=== PATIENT | female | born 1960 | race Caucasian/White ===

== ENCOUNTER → 2018-10-28 10:32 | Outpatient (CLI) | payer MEDICAID, SELFPAY ==
--- NOTE | 2018-10-28 10:50 | XR_ITS ---
XR foot RT min 3V HISTORY: ITS.REASON: RT FOOT PAIN ORDERING PHYSICIAN: Becka Crawford APRN PATIENT AGE: 58 years COMPARISON: 08/31/2015 FINDINGS: There is cortical irregularity with flattening of the distal aspect of the second and third metatarsals consistent with avascular necrosis which is shown some progression compared to the previous exam with mild osteoarthritic change noted at the second MTP joint. Osteoarthritic changes are also present at the first metatarsal tarsal joint. A bone spur present at the plantar surface of the calcaneus at 9 mm. No fracture or dislocation. IMPRESSION: 1. 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 Osteoarthritic change of the verst tarsal metatarsal joint
== END ==
PROVIDERS: PCP Family Medicine; Visit Provider Nurse Practitioner Family
DX: M79.671 Pain in right foot (principal)
CPT/HCPCS: 73630

== ENCOUNTER 2018-12-22 15:30 | Outpatient (RCR) | payer MEDICAID, SELFPAY ==
--- NOTE | 2018-11-28 09:16 | HMH.PTOPEV ---
PT Outpatient Evaluation Rehab PT Outpatient Evaluation Start: 11/28/18 09:08 Freq: Status: Active Protocol: Document 11/28/18 09:08 CAROLYN (Rec: 11/28/18 09:16 CAROLYN [id number]) Electronically Signed By Abram Lopez, PT 11/28/18 09:08 Outpatient Therapy Subjective History Subjective History Pt reports insidious onset R ankle/foot pain beginning ~1 month ago. Pt reports mostly lateral aspect R ankle/foot pain, however, reports ' struggles with diabetic neuropathy in both my feet every now and then'. Chief Complaint Pain,Stiff,Swelling Symptom Type Ache,Dull Symptoms Relieved By Rest/Positioning,Prescription Meds Symptoms Aggravated By Physical Activity,Walking Prior Functional Limitations Housework,Standing,Walking Current Functional Limitations Housework,Standing,Walking Symptom Description Constant but Variable Level of pain today (0-10) 5 Pain scale - at its best (0-10) 4 Pain scale - at its worst (0-10) 10 Ankle/Foot Eval Gait Observation General Gait Pattern Observation Antalgic Gait,Wide Based Gait Palpation Tenderness right Ankle/Foot Palpation Findings Tenderness Ankle/Foot Palpation Overall Comment 3/4 peroneal insertion ROM left Ankle/Foot Dorsiflexion w/Knee Extended 0-10 Active Range Motion (degrees) Ankle/Foot Plantar Flexion Active Range 0-50 of Motion (degrees) Ankle/Foot Eversion Active Range of 0-10 Motion (degrees) Ankle/Foot Inversion Active Range of 0-30 Motion (degrees) right Ankle/Foot Dorsiflexion w/Knee Extended 0-10 Active Range Motion (degrees) Ankle/Foot Plantar Flexion Active Range 0-40 of Motion (degrees) Ankle/Foot Eversion Active Range of 0-10 Motion (degrees) Ankle/Foot Inversion Active Range of 0-30 Motion (degrees) MMT left Ankle Dorsiflexion Strength Grade 5 Normal Ankle Plantarflexion Strength Grade 5 Normal Foot Eversion Strength Grade 4- Good- Foot Inversion Strength Grade 4 Good right Ankle Dorsiflexion Strength Grade 4 Good Ankle Plantarflexion Strength Grade 4 Good Foot Eversion Strength Grade 4- Good- Foot Inversion Strength Grade 4 Good Special Tests Ankle Anterior Drawer Test Negative Left,Negative Right Ankle Eversion Test Negative Left,Negative Right Talar Tilt Test Negative Left,Negative Right Ankle Inversion (supination) Test Negative Left,Negative Right Ankle Posterior Drawer Test Negative Left,Negative Right Outpatient Therapy Assessment Impairments Pr
== END 2018-12-22 15:45 | disposition home or self-care (01) ==
LOC: PT 15:30
PROVIDERS: Visit Provider Podiatrist
DX: M76.71 Peroneal tendinitis, right leg (principal)
CPT/HCPCS: 97010; 97014; 97033; 97035; 97110; 97163; G0283

== ENCOUNTER → 2019-09-18 09:08 | Outpatient (CLI) | payer OTHER, SELFPAY ==
--- NOTE | 2019-09-18 09:13 | US_ITS ---
PROCEDURE: US LIVER CLINICAL INDICATION: ELEVATED ALKALINE PHOSPHATASE LEVEL COMPARISON: ABDPELW/O CT ABD PELVIS W/O CONTRAST from 08/14/2016 FINDINGS: PANCREAS: Unremarkable. No obvious mass or abnormal fluid collection. No ductal dilatation LIVER: No focal liver lesions demonstrated. Homogeneous echogenicity. No intrahepatic biliary ductal dilatation evident. There is appropriate direction of blood flow within a non dilated portal vein. There is some slight increased echogenicity of the liver with fairly poor through transmission of sound consistent with fatty liver. RIGHT KIDNEY: Unremarkable. Normal size and echogenicity. No hydronephrosis. There are several right renal cysts measuring up to 4 cm in the lower pole GALLBLADDER: Prior cholecystectomy. Common bile duct is normal at 4 mm. IMPRESSION: 1. Post cholecystectomy change. 2. Fatty liver Dictated by: Hiro Isaac MD 09/18/2019 16:09 Electronically signed by Hiro Isaac MD in [facility] 09/18/2019 16:09
== END ==
PROVIDERS: PCP Nurse Practitioner; Referring Provider Nurse Practitioner Family; Visit Provider Nurse Practitioner Family
DX: R74.8 Abnormal levels of other serum enzymes (principal)
CPT/HCPCS: 76705

== ENCOUNTER → 2021-05-20 11:26 | Outpatient (CLI) | payer OTHER, SELFPAY ==
--- NOTE | 2021-05-20 11:33 | CT_ITS ---
PROCEDURE: CT KNEE RT WO CON CLINICAL HISTORY: ACUTE PAIN OF RT KNEE Twisting injury with pain COMPARISON: No exams were available for comparison TECHNIQUE: Axial images obtained with sagittal and coronal reformats. All CT scans at the facility use one or more dose reduction, viz: automated exposure control, ma/kV adjustment per patient size (including targeted exams where dose is matched to indication, i.e. head), or iterative reconstruction technique. FINDINGS: No acute fracture or dislocation evident. There are mild tricompartmental osteoarthritic changes. There is a faint calcific density along the lateral aspect of the medial compartment. This is nonspecific contiguous with the medial femoral condyle on the axial images and could be due to an unusual osteophyte or even a small avulsion injury. There is a medium size knee joint effusion. No evidence of intra-articular lipohemarthrosis. There is diffuse vascular calcification. Small Schwartz cyst is also present IMPRESSION: 1. Osteoarthritic changes with knee joint effusion and small Schwartz cyst. 2. Faint calcific density along the lateral aspect of the medial femoral condyle which could be due to a faint avulsion injury or an unusual osteophyte. Dictated by: Hiro Isaac MD 05/21/2021 12:43 Hiro Isaac MD in [facility] 05/21/2021 12:43
== END ==
PROVIDERS: PCP Family Medicine; Visit Provider Family Medicine
DX: M25.561 Pain in right knee (principal)
CPT/HCPCS: 73700

== ENCOUNTER 2021-06-24 13:03 | Emergency (ER) | payer OTHER, SELFPAY ==
[2021-06-24 13:07] VITALS: BP 154/68; PULSE 90; RESP 18; O2SAT 95; BMI 42.9
--- NOTE | 2021-06-24 13:43 | XR_ITS ---
PROCEDURE: XR ANKLE RT MIN 3V CLINICAL INDICATION: fall COMPARISON: No exams were available for comparison FINDINGS: No fracture or dislocation. No lytic or blastic change. There is normal mineralization. Calcaneal spur is present. Bony spur or old fracture noted at the talonavicular junction anteriorly . IMPRESSION: No acute findings. Dictated by: Hiro Isaac MD 06/24/2021 15:11 Hiro Isaac MD in [facility] 06/24/2021 15:11
--- NOTE | 2021-06-24 13:43 | XR_ITS ---
PROCEDURE: XR LUMBAR SPINE 2-3V CLINICAL INDICATION: fall COMPARISON: CT ABDPELW/O CT ABD PELVIS W/O CONTRAST from 08/14/2016 FINDINGS: Minimal lumbar curvature convex left. The Grade 1-2 spondylitic spondylolisthesis of L5 on S1. There is 13 mm anterolisthesis of L5. Degenerative changes are present in the lower thoracic spine. No acute fracture or dislocation. No lytic or blastic change. Generalized vascular calcification. IMPRESSION: Degenerative changes with grade 1-2 spondylitic spondylolisthesis L5 on S1 Dictated by: Hiro Isaac MD 06/24/2021 15:15 Hiro Isaac MD in [facility] 06/24/2021 15:15
--- NOTE | 2021-06-24 13:43 | XR_ITS ---
PROCEDURE: XR TIBIA FIBULA RT 2V CR XR KNEE RT three views CLINICAL INDICATION: fall COMPARISON: CR XR KNEE RT 3V from 06/24/2021 FINDINGS: There are mild osteoarthritic changes at the knee involving all 3 compartments. No fracture or dislocation. No lytic or blastic change. IMPRESSION: No acute findings. Dictated by: Hiro Isaac MD 06/24/2021 15:13 Hiro Isaac MD in [facility] 06/24/2021 15:13
--- NOTE | 2021-06-24 13:43 | XR_ITS ---
PROCEDURE: XR WRIST LT MIN 3V CLINICAL INDICATION: fall COMPARISON: No exams were available for comparison FINDINGS: No fracture or dislocation. Cystic changes are present in the navicular centrally well-circumscribed measuring approximately 9 by 5 mm. There is generalized vascular calcification. Mild osteoarthritic change 1st carpal metacarpal junction Other findings:None. IMPRESSION: No acute finding. Cystic changes in the right navicular. Follow-up may confirm stability Dictated by: Hiro Isaac MD 06/24/2021 15:10 Hiro Isaac MD in [facility] 06/24/2021 15:10
[2021-06-24 14:13] VITALS: BP 200/78; PULSE 84; RESP 18; TEMP 36.8; O2SAT 96; BMI 43.7
--- NOTE | 2021-06-24 14:35 | HMH.EDUTC ---
[facility] [place] Clinical [place]ression: Fall Qualifiers: Encounter type: initial encounter Qualified Code(s): W19.XXXA - Unspecified fall, initial encounter Left wrist sprain Qualifiers: Encounter type: initial encounter Qualified Code(s): S63.502A - Unspecified sprain of left wrist, initial encounter Sprain of right knee Qualifiers: Encounter type: initial encounter Involved ligament of knee: unspecified ligament Qualified Code(s): S83.91XA - Sprain of unspecified site of right knee, initial encounter Right ankle sprain Qualifiers: Encounter type: initial encounter Involved ligament of ankle: unspecified ligament Qualified Code(s): S93.401A - Sprain of unspecified ligament of right ankle, initial encounter Disposition: Home, Self-Care Condition on Discharge: Good Instructions: DI for Wrist Sprain, DI for Knee Sprain, DI for Ankle Sprain Additional Instructions: Rest your extremities, apply ice for 15 minutes as tolerated three or four times per day, Wear the owen wrap for compression, Elevate the extremity as tolerated while you are resting. Follow up with Dr. Suh (orthopedics). Sometimes there can be fractures that don't show up well on the first set of x-rays. So, you should follow up if you continue to have symptoms. I put in a referral but you need to call his office and schedule an appointment. Follow up with your regular doctor. GO TO THE ER FOR ANY WORSENING SYMPTOMS Referrals: Huan Sales MD [Primary Care Provider] - Roverto Suh MD [Staff Physician] - Time of Disposition: 15:48 Medical Decision Making - Medical Records Medical records reviewed: No: I reviewed the patient's medical records. - John Inquiry Pt receiving controlled substance: No Vital Signs: 06/24/21 13:07 06/24/21 14:13 06/24/21 15:59 Temperature 98.2 F 98.2 F Temperature Source Oral Pulse Rate 84 Pulse Rate [Right Radial] 90 84 Respiratory Rate 18 18 18 Blood Pressure 200/78 H Blood Pressure [Right Arm] 154/68 H 200/78 H Blood Pressure Mean [Right Arm] 96 118 Blood Pressure Source [Right Arm] Automatic Cuff Blood Pressure Position [Right Arm] Sitting 02 Sat by Pulse Oximetry 95 96 Oxygen Delivery Method Room Air - Radiology Data #1 Image(s): Wrist Image Reviewed: Yes I reviewed the patient's radiology image, Yes I have reviewed radiologist's interpretation Preliminary Findings: Normal/NAD, No Fracture Seen PROCEDURE: XR TIBIA FIBULA RT 2V CR XR KNEE RT three views CLINICAL INDICATION: fall COMPARISON: CR XR KNEE RT 3V from 06/24/2021 FINDINGS: There are mild osteoarthritic changes at the knee involving all 3 compartments. No fracture or dislocation. No lytic or blastic change. IMPRESSION: No acute findings. Dictated by: Hiro Isaac MD 06/24/2021 15:13 Hiro Isaac MD in [facility] 06/24/2021 15:13 #2 Image(s): Ankle Image Reviewed: Yes I reviewed the patient's radiology image, Yes I have reviewed radiologist's interpretation Preliminary Findings: Normal/NAD, No Fracture Seen PROCEDURE: XR ANKLE RT MIN 3V CLINICAL INDICATION: fall COMPARISON: No exams were available for comparison FINDINGS: No fracture or dislocation. No lytic or blastic change. There is normal mineralization. Calcaneal spur is present. Bony spur or old fracture noted at the talonavicular junction anteriorly . IMPRESSION: No acute findings. Dictated by: Hiro Isaac MD 06/24/2021 15:11 Hiro Isaac MD in [facility] 06/24/2021 15:11 [facility] [place] - General Stated complaint: [id number] fell and hurt left wrist,right ankl Time Seen by Provider: 06/24/21 14:35 Mode of Arrival: Ambulatory Source of Information: Patient Limitations: No Limitations Description of Symptoms (Recalled from Triage Doc. by RN): pt states she fell this am at her house on her porch. pt c/o L wrist, lower back, R knee and R ankle pain. HEENT Symptoms (Recalled from RN notes)
[2021-06-24 15:59] VITALS: BP 200/78; PULSE 84; RESP 18; TEMP 36.8
== END 2021-06-24 16:02 | disposition home or self-care (01) ==
LOC: ER 13:14 → UTC 13:23
PROVIDERS: Emergency Provider Nurse Practitioner Family; PCP Family Medicine
DX: S63.502A Unspecified sprain of left wrist, initial encounter (principal); S93.401A Sprain of unspecified ligament of right ankle, initial encounter; W01.0XXA Fall on same level from slipping, tripping and stumbling without subsequent striking against object, initial encounter; Y92.099 Unspecified place in other non-institutional residence as the place of occurrence of the external cause
CPT/HCPCS: 72100; 73110; 73562; 73590; 73610; 99202; G0463

== ENCOUNTER → 2021-07-01 11:14 | Outpatient (CLI) | payer OTHER, SELFPAY ==
--- NOTE | 2021-07-01 11:19 | XR_ITS ---
FINAL REPORT CLINICAL HISTORY: LT WRIST PAIN, fall 1 week ago COMPARISON: June 24, 2021 FINDINGS: LEFT WRIST Three views were obtained. On the lateral view there appears to be a fracture of the dorsal aspect of the distal ulna with approximately 2 mm of offset. This is not seen on the AP or oblique views. There is soft tissue swelling of the dorsum of the wrist. The visualized joint spaces are normally aligned. IMPRESSION: Apparent fracture of the distal ulna seen on the lateral view only. Correlate with stated point tenderness. Reviewed, Interpreted and Dictated by Donal Cintron MD Transcribed by Aniyah Owusu Authenticated by Donal Cintron MD on 07/01/2021 12:13:16 PM [facility]
== END ==
PROVIDERS: PCP Family Medicine; Visit Provider Family Medicine
DX: M25.532 Pain in left wrist (principal)
CPT/HCPCS: 73110

== ENCOUNTER → 2021-07-08 09:48 | Outpatient (CLI) | payer OTHER, SELFPAY ==
--- NOTE | 2021-07-08 09:55 | XR_ITS ---
FINAL REPORT CLINICAL HISTORY: wrist fracture COMPARISON: June 24, 2021 FINDINGS: 3 views of the left wrist were obtained. There is overlying cast material which obscures some detail. A fracture of the distal radius extends to the radiocarpal joint. Bony alignment is stable. There are mild degenerative changes. Vascular calcifications are present. IMPRESSION: Distal radius fracture extending to the radiocarpal joint. Bony alignment is stable. Reviewed, Interpreted and Dictated by Tonio Jacob III, MD Transcribed by Adis Zeng Authenticated by Tonio Jacob III, MD on 07/08/2021 11:15:19 AM [facility]
== END ==
PROVIDERS: PCP Family Medicine; Visit Provider Orthopaedic Surgery
DX: S62.102A Fracture of unspecified carpal bone, left wrist, initial encounter for closed fracture (principal)
CPT/HCPCS: 73110

== ENCOUNTER → 2021-07-21 10:45 | Outpatient (CLI) | payer OTHER, SELFPAY ==
--- NOTE | 2021-07-21 10:54 | XR_ITS ---
FINAL REPORT CLINICAL HISTORY: RT knee pain FINDINGS: RIGHT KNEE: 4 views of the right knee obtained. There is no acute fracture or dislocation. There is a moderate sized joint effusion. Moderate medial compartment joint space narrowing is seen with sharpening of the tibial spines. There is no soft tissue abnormality. IMPRESSION: Moderate changes of osteoarthritis with moderate sized joint effusion. No acute bony abnormality. Reviewed, Interpreted and Dictated by Donal Cintron MD Transcribed by Kailyn Mckenzie Authenticated by Donal Cintron MD on 07/21/2021 03:39:07 PM [facility]
== END ==
PROVIDERS: PCP Family Medicine; Visit Provider Orthopaedic Surgery
DX: M25.561 Pain in right knee (principal)
CPT/HCPCS: 73564

== ENCOUNTER 2021-07-22 10:07 | Outpatient (RCR) | payer OTHER, SELFPAY | END 2021-07-22 11:00 | disposition home or self-care (01) | LOC: OT 10:07 | PROVIDERS: Visit Provider Orthopaedic Surgery | DX: S52.502D Unspecified fracture of the lower end of left radius, subsequent encounter for closed fracture with routine healing (principal); S52.602D Unspecified fracture of lower end of left ulna, subsequent encounter for closed fracture with routine healing | CPT/HCPCS: 97763 ==

== ENCOUNTER → 2021-08-05 10:07 | Outpatient (CLI) | payer OTHER, SELFPAY ==
--- NOTE | 2021-08-05 10:10 | XR_ITS ---
FINAL REPORT CLINICAL HISTORY: RT knee pain COMPARISON: July 21, 2021 FINDINGS: 4 views of the right knee were obtained. There is no acute fracture or dislocation. There are mild degenerative changes. There is mild narrowing of the medial compartment. The soft tissues are unremarkable. IMPRESSION: Mild degenerative change. Reviewed, Interpreted and Dictated by Tonio Jacob III, MD Transcribed by Adis Zeng Authenticated by Tonio Jacob III, MD on 08/05/2021 12:34:52 PM [facility]
--- NOTE | 2021-08-05 11:02 | XR_ITS ---
FINAL REPORT CLINICAL HISTORY: wrist pain COMPARISON: July 08, 2021 FINDINGS: 3 views of the left wrist were obtained. There is a comminuted, impacted fracture of the distal radius. There is increased sclerosis at the fracture site consistent with interval healing. There is no change in the bony alignment. Mild degenerative changes are present. There is vascular calcification. IMPRESSION: Healing distal radius fracture. Reviewed, Interpreted and Dictated by Tonio Jacob III, MD Transcribed by Adis Zeng Authenticated by Tonio Jacob III, MD on 08/05/2021 12:34:53 PM [facility]
== END ==
PROVIDERS: PCP Family Medicine; Visit Provider Orthopaedic Surgery
DX: M25.561 Pain in right knee (principal); S63.502A Unspecified sprain of left wrist, initial encounter
CPT/HCPCS: 73110; 73564

== ENCOUNTER 2021-08-21 09:00 | Outpatient (RCR) | payer OTHER, SELFPAY ==
--- NOTE | 2021-08-14 08:41 | HMH.OTOPEV ---
OT Inpatient Evaluation Rehab OT Outpatient Eval Start: 08/14/21 08:28 Freq: Status: Active Protocol: Document 08/14/21 08:28 BRIGETTE (Rec: 08/14/21 08:40 [id number] Electronically Signed By Ashutosh Benítez OT 08/14/21 08:28 Outpatient Therapy Subjective History Subjective History Pt is a 61 year old female who reports to therapy for initial evaluation to left wrist. Pt fell on 06/24/21 resulting in a left wrist fx. Pt did not require surgery. She believes she was in a cast for ~4 weeks following the injury. At this time, she does demonstrate with decreased AROM, strength, and repeater operator strength at left wrist/ hand. Pt is right hand dominant. Pt currently works part-time as a caregiver. Pt complains of not being able to do heavy pairer inspector such as vaccuming, dishes, laundry, etc due to weakness/ pain. Pt will continue to be seen twice a week in order to address all deficits; pt agreeable with tx plan. STG L hand repeater operator strength: 30 lbs LTG L hand repeater operator strength: 35 lbs Chief Complaint Pain,Stiff,Weakness,Decreased [employer] Strength Symptom Type Ache,Throb,Sharp,Dull Symptoms Relieved By OTC Meds Symptoms Aggravated By Physical Activity,Lifting Prior Functional Limitations None Current Functional Limitations Reaching,Lifting,Housework, Dressing,Sleeping,Recreation Activity Symptom Description Intermittent,Activity Dependent Level of pain today (0-10) 3 Pain scale - at its best (0-10) 0 Pain scale - at its worst (0-10) 5 Wrist/Hand Eval Wrist Range of Motion Left Wrist Extension Active Range of Motion ( 50 degrees degrees) Wrist Flexion Active Range of Motion ( 40 degrees degrees) Wrist Radial Deviation Active Range of 25 degrees Motion (degrees) Wrist Ulnar Deviation Active Range of 20 degrees Motion (degrees) Forearm Supination Active Range of
== END 2021-08-21 09:05 | disposition home or self-care (01) ==
LOC: OT 09:00
PROVIDERS: PCP Family Medicine; Visit Provider Orthopaedic Surgery
DX: S52.352D Displaced comminuted fracture of shaft of radius, left arm, subsequent encounter for closed fracture with routine healing (principal)
CPT/HCPCS: 97010; 97014; 97035; 97110; 97140; 97166; G0283

== ENCOUNTER 2021-08-21 10:00 | Outpatient (RCR) | payer OTHER, SELFPAY ==
--- NOTE | 2021-07-29 09:35 | HMH.PTOPEV ---
PT Outpatient Evaluation Rehab PT Outpatient Evaluation Start: 07/29/21 09:22 Freq: Status: Active Protocol: Document 07/29/21 09:22 ROGER (Rec: 07/29/21 09:34 PHORYOKO [id number]) Electronically Signed By Raad Guerrero, PT 07/29/21 09:22 Outpatient Therapy Subjective History Subjective History Pt is 61 yowf who presents with c/o pain in the R knee x ~ 5 mos with insidious onset of symptoms. She reports pain worse at nigt and with all mobility involving standing or walking. She does report significantly reduced pain after injection in the knee. She reports no c/o numbness or tingling. Pt has PMH of HTN, DM-II, Obesity, hypothyroid. Pt currently provides little insight into her condition during hx and seems somewhat indifferent to improving at this time. Chief Complaint Pain,Stiff Symptom Type Ache Symptoms Relieved By Rest/Positioning Symptoms Aggravated By Physical Activity Prior Functional Limitations None Current Functional Limitations Standing,Walking Symptom Description Activity Dependent Level of pain today (0-10) 2 Pain scale - at its worst (0-10) 10 Hip/Knee Eval Gait Observation General Gait Pattern Observation No Deviations/Normal Palpation Tenderness right Knee Palpation Finding Tenderness Knee Palpation Overall Comment throughout MMT Hip Flexion Strength Grade 4 Good Hip Abduction Strength Grade 4 Good Hip Adduction Strength Grade 4 Good Hip Extension Strength Grade 4 Good Hip External Rotation Strength Grade 4 Good Hip Internal Rotation Strength Grade 4 Good Knee Extension Strength Grade 4 Good Knee Flexion Strength Grade 4 Good ROM Knee Extension Active Range of Motion ( 0 degrees) Knee Flexion Active Range of Motion ( 0-115 degrees) Special Tests Knee Anterior Drawer Test Negative Left,Negative Right Booker 90/90 Test (PCL) Negative Left,Negative Right Knee Anterior Joyce Test Negative Left,Negative Right Knee Valgus Stress Test Negative Left,Negative Right Knee Varus Stress Test Negative Left,Negative Right Knee Shirin Test Negative Left,Negative Right Outpatient Therapy Assessment Impairments Problems/Impairmments Palpation Tenderness,Impaired Ra
== END 2021-08-21 10:05 | disposition home or self-care (01) ==
LOC: PT 10:00
PROVIDERS: PCP Family Medicine; Visit Provider Orthopaedic Surgery
DX: M17.11 Unilateral primary osteoarthritis, right knee (principal)
CPT/HCPCS: 97010; 97014; 97110; 97163; G0283

== ENCOUNTER → 2021-09-02 09:00 | Outpatient (CLI) | payer OTHER, SELFPAY ==
--- NOTE | 2021-09-02 09:09 | XR_ITS ---
FINAL REPORT CLINICAL HISTORY: left wrist fx back in .pain COMPARISON: August 05, 2021 FINDINGS: LEFT WRIST Three views re-demonstrate an impaction fracture of the distal radius. There is evidence of further healing with probable bony fusion. There is a nondisplaced fracture of the tip of the ulnar styloid process. There are mild degenerative changes. There are mild vascular calcifications. IMPRESSION: Fractures of the distal radius and ulnar styloid process. Reviewed, Interpreted and Dictated by Tonio Jacob III, MD Transcribed by Caroline Benítez Authenticated by Tonio Jacob III, MD on 09/02/2021 11:09:05 AM [facility]
== END ==
PROVIDERS: PCP Family Medicine; Visit Provider Orthopaedic Surgery
DX: S63.502A Unspecified sprain of left wrist, initial encounter (principal)
CPT/HCPCS: 73110

== ENCOUNTER → 2022-02-04 08:42 | Outpatient (CLI) | payer OTHER, SELFPAY ==
--- NOTE | 2022-02-04 08:53 | XR_ITS ---
FINAL REPORT CLINICAL HISTORY: knee pain FINDINGS: Left knee Four views were obtained. There is no acute fracture or dislocation. Mild degenerative changes are present. No acute soft tissue abnormality is identified. IMPRESSION: Mild degenerative changes. Reviewed, Interpreted and Dictated by Tonio Jacob III, MD Transcribed by Ashley Rodriguez Authenticated and . [facility]
== END ==
PROVIDERS: PCP Family Medicine; Visit Provider Orthopaedic Surgery
DX: M25.562 Pain in left knee (principal)
CPT/HCPCS: 73564

== ENCOUNTER → 2022-10-08 15:39 | Outpatient (CLI) | payer OTHER, SELFPAY ==
--- NOTE | 2022-10-08 15:44 | MM_ITS ---
PROCEDURE INFORMATION: Exam: Bilateral Screening 3D Mammography Exam date and time: 10/08/2022 3:41 PM Age: 62 years old Clinical indication: Screening examination TECHNIQUE: Imaging protocol: Bilateral Screening tomosynthesis and 2D mammography including computer-aided detection (CAD) when performed. COMPARISON: 1. DMSB DIGITAL MAMM-SCREEN BILATERAL 10/13/2011 3:55 PM 2. DIGMAMMS MAMMOGRAM SCREEN-NUTTER UP N/C 03/08/2007 3:29 PM FINDINGS: MAMMOGRAPHY: Breast composition: There are scattered areas of fibroglandular density. Mass: None. Architectural distortion: None. Calcifications: No suspicious calcifications. Asymmetric density: None. Skin thickening: None. Axillary adenopathy: None. IMPRESSION: No mammographic evidence of malignancy. Annual screening is recommended unless otherwise clinically indicated. ASSESSMENT: BI-RADS Category 1: Negative
== END ==
PROVIDERS: PCP Family Medicine; Visit Provider Family Medicine
DX: Z12.31 Encounter for screening mammogram for malignant neoplasm of breast (principal)
CPT/HCPCS: 77063; 77067

== ENCOUNTER → 2022-11-20 09:26 | Outpatient (CLI) | payer OTHER, SELFPAY ==
--- NOTE | 2022-11-20 | US_ITS ---
FINAL REPORT CLINICAL HISTORY: DM,MD UNABLE TO FIND PEDAL PULSES,CLAUDICATION,REST PAIN,HTN,OBESITY FINDINGS: COMPLETE ANKLE/BRACHIAL INDICES BILATERAL Complete ankle brachial indices were obtained. The right AMIRA is 1.0. The left AMIRA is 0.8. IMPRESSION: Mild peripheral vascular disease on the left. If indicated, CTA may be helpful. Reviewed, Interpreted and Dictated by Tonio Jacob III, MD Transcribed by Ashley Rodriguez Authenticated and [facility]
--- NOTE | 2022-11-20 | CA_ITS ---
FINAL REPORT TECHNIQUE: Color Doppler, duplex Doppler and holden scale sonography of the bilateral neck arterial vasculature was performed. Velocities were measured in the carotid arteries. Stenosis evaluation based on the validated velocity criteria. CLINICAL HISTORY: BRUIT,HTN,DM FINDINGS: The peak systolic velocity of the right common carotid artery is 70 cm/s. The peak systolic velocity of the right internal carotid artery is 90 cm/s and end diastolic velocity 17 cm/s. The ICA/CCA ratio is 1.7. A small amount of plaque is present. The right external carotid artery is patent. The right vertebral artery is patent with antegrade flow. The peak systolic velocity of the left common carotid artery is 69 cm/s. The peak systolic velocity of the left internal carotid artery is 86 cm/s and end diastolic velocity 14 cm/s. The ICA/CCA ratio is 1.7. A small amount of plaque is present. The left external carotid artery is patent.The left vertebral artery is patent with antegrade flow. IMPRESSION: Less than 50% bilateral carotid stenoses. Bilateral patent vertebral arteries with antegrade flow. If indicated, CTA or MRA could further evaluate. Reviewed, Interpreted and Dictated by Tonio Jacob III, MD Transcribed by Ashley Rodriguez Authenticated and [facility]
== END ==
PROVIDERS: PCP Family Medicine; Visit Provider Internal Medicine
DX: R09.89 Other specified symptoms and signs involving the circulatory and respiratory systems (principal); G62.9 Polyneuropathy, unspecified
CPT/HCPCS: 93880; 93923

== ENCOUNTER 2022-12-03 20:01 | Emergency (ER) | payer OTHER, SELFPAY ==
[2022-12-03 20:09] VITALS: BP 173/55; PULSE 80; RESP 18; TEMP 36.9; O2SAT 96; BMI 39.3
--- NOTE | 2022-12-03 20:16 | HMH.EDWNDL ---
Discharge Plan Disposition Patient Disposition: Home, Self-Care Chief Complaint: Wound/Laceration Prescriptions Prescriptions: No Action timolol 0.25 % drops 1 drp OPHTHALMIC BID glimepiride 4 mg tablet 4 mg PO BID levothyroxine 100 mcg capsule 100 mcg PO DAILY diclofenac sodium [Voltaren] 1 % gel 4 g topical QID Qty: 30 2RF Rx Instructions: apply to single knee, ankle, foot; gently massage into area; for foot includes sole/toes/top of foot Referrals Follow up/Referrals: Huan Sales MD [Primary Care Provider] - See instructions Clinical Impressions Clinical Impression: Laceration Instructions Patient Instructions: Minor Wounds (Alternative Therapy) Discharge ED Provider: Graham (ED),Amaury Rick Wound/Laceration HPI General Chief Complaint: Wound/Laceration Stated Complaint: AO [id number] right toe bleeding Time Seen by Provider: 12/03/22 20:16 Mode of Arrival: Ambulatory Source of Information: Patient and Medical Record Limitations: No Limitations Description of Symptoms (Recalled from ER Triage Doc. by RN): pt states she stepped on a broke piece of glass around 1600. pt has a lac to her R great toe. pt is in need of a tdap. History of Present Illness HPI narrative: acute injury to rt great toe - lac Onset (ago): hour(s) Extremity Location: Right: foot Place: home Patient tetanus UTD: No Associated symptoms: none Related Data Home Medications Medication Instructions Recorded Confirmed glimepiride 4 mg tablet 4 mg PO BID 11/17/18 11/04/22 levothyroxine 100 mcg capsule 100 mcg PO DAILY 11/17/18 11/04/22 timolol 0.25 % eye drops 1 drp ophthalmic (eye) BID 11/17/18 11/04/22 Previous Rx's Medication Instructions Recorded diclofenac sodium 1 % topical gel 4 g topical QID pain #30 grams 11/17/18 (Voltaren) Allergies Allergy/AdvReac Type Severity Reaction Status Date / Time No Known Allergies Allergy Verified 12/03/22 20:13 [facility] Disclaimer: The information contained in this section may have been updated after the patient was seen, as this information can be updated by other users. Social History Smoking Status: Never smoker alcohol intake: never current occupational status: employed Travel in the last 8 weeks: None ROS Obtained: Yes All systems reviewed & no additional complaints except as documented Physical Exam General General appearance: alert Head Head exam: normocephalic Eye Eye exam: Present PERRL and EOMI ENT ENT exam: Present mucous membranes moist Neck Neck exam: Present trachea midline Respiratory Respiratory exam: Absent respiratory distress Cardiovascular Cardiovascular exam: Present regular rate Abdominal Exam Abdominal exam: Present soft Extremities Exam Extremities exam: Present full ROM and other (1 cm avulsion lac rt distal rt great toe ) Neurological Exam Neurological exam: Present alert and CN II-XII intact Psychiatric Psychiatric exam: Present normal affect Skin Skin exam: Absent rash Medical Decision Making Medical Records Medical records reviewed: Yes I reviewed the patient's medical records. John Inquiry Pt receiving controlled substance: No Vital Signs: 12/03/22 20:09 Temperature 98.5 F Temperature Source Oral Pulse Rate [Right] 80 Respiratory Rate 18 Blood Pressure [Right Arm] 173/55 H Blood Pressure Mean [Right Arm] 94 Blood Pressure Source [Right Arm] Automatic Cuff Blood Pressure Position [Right Arm] Sitting 02 Sat by Pulse Oximetry 96 Oxygen Delivery Method Room Air Lab Data Lab results reviewed: Yes I reviewed the patient's lab results. Orders (Tests/Meds): ED MEDICATIONS Generic Name Dose Route Start Last Admin Trade Name Freq PRN Reason Stop Dose Admin Tetanus/Reduced Diphtheria/Acell Pertussis 0.5 ml 12/03/22 20:13 Tet/Diphth/Pert-Adult 0.5ml Syringe IM 12/03/22 20:14 .ONCE ONE [facility]
[2022-12-03 20:24] VITALS: BP 169/64; PULSE 79; RESP 18; TEMP 36.9; O2SAT 96
== END 2022-12-03 20:30 | disposition home or self-care (01) ==
PROVIDERS: Emergency Provider Emergency Medicine; PCP Family Medicine
DX: S91.111A Laceration without foreign body of right great toe without damage to nail, initial encounter (principal); Z23 Encounter for immunization; W25.XXXA Contact with sharp glass, initial encounter
CPT/HCPCS: 90715; 96372; 99283; 99284

== ENCOUNTER → 2023-03-05 11:13 | Outpatient (CLI) | payer OTHER, SELFPAY ==
--- NOTE | 2023-03-05 | CA_ITS ---
APPROVED REPORT Exam: Pharmacologic Technologist: Gabriela Mann, Ht: 5 ft 4 in Wt: 232 lbs BSA: 2.08 m2 HR: 71 bpm BP: 149/63 mmHg Rhythm: NSR Indications: Abn AMIRA Medical History Medical History: HTN, Diabetes Medications: Amlodipine,,,,, Lisinopril,,,,, Levothyroxine,,,,, Gabapentin,,,,, Vit D2,,,,, RYbelsus,,,,, INSULINE GLARGINE,,,,, Allergies: No known drug allergies Cardiac Risk Factors: HTN, Diabetes Stress Test Details Test: LEXISCAN HR Resting HR: 69 bpm Max Heart Rate (APMHR): 157 bpm Max HR Achieved: 88 bpm Target HR (85% APMHR): 133 bpm % of APMHR: 56 Recovery HR: 80 bpm BP Resting BP: 149/63 mmHg Max BP: 158/62 mmHg Recovery BP: 150.0/60.0 mmHg ECG Resting ECG: NSR, nonspecific T wave changes in inferolateral leads Stress ECG: No change Arrhythmia: None Clinical Exercise duration: 04:03 min Highest Stage Achieved: Exercise capacity: 1.0 METs Stress ECG Conclusion PT HAD MILD SOA, AND MILD MALAISE NO CP NO SIGNIFICANT ST CHANGES UNREMARKABLE LEXISCAN STRESS MYOVIEW IMAGES REPORTED SEPARATELY Test Summary REST . . . . . . . Resting REST 03:44 . . 69 . 149/ 63 . . Stage 1 01:00 . . 81 . . . . Stage 2 01:00 . . 81 . . . . Stage 3 01:00 . . 82 . 158/ 62 . . Stage 4 01:00 . . 80 . 158/ 61 . . Stage 4 01:03 . . 80 . 158/ 61 . Stop exercise at 04:03 RECOVERY 01:00 . . 82 . 152/ 60 . . RECOVERY 02:00 . . 82 . 152/ 60 . . RECOVERY 03:00 . . 80 . 152/ 60 . . RECOVERY 03:20 . . 77 . 150/ 60 . . Electronically signed by : Janis Rogers, 03/17/2023 00:20:20
--- NOTE | 2023-03-05 11:17 | NM_ITS ---
APPROVED REPORT Exam: Nuclear Stress Test Indication: HTN, DM, HYPERLIPIDEMIA, SOB, PALPITATIONS, SYNCOPE, FATIGUE Patient Location: Outpatient Stress Tech: Gabriela Melo [place] Tech:Lindsay Muñiz, ARRT RT(R)(N) Ht: 5 ft 4 in Wt: 231 lbs Bra Size: D HR: 69 bpm BP: 149/63 mmHg BSA: 2.08 m2 TID: 1.28 BMI: 39.6 History: HTN, DM, HYPERLIPIDEMIA, SOB, PALPITATIONS, SYNCOPE, FATIGUE Procedure: Patient received 0.4 mg of intravenous Lexiscan, resting heart rate 69 bpm, resting blood pressure 149/63 mmHg, with Lexiscan maximum heart rate achieved was 82 bpm which is % of the maximum predicted heart rate and blood pressure was 158/62 mmHg. With Lexiscan, patient denied any complaint of chest pain. Cardiac Stress and Resting SPECT Images: Cardiac Stress and Resting SPECT images were obtained using technetium 99m Myoview 32.4 mCi stress and 10.83 mCi at rest. Resting and stress imaging in supine and prone positions demonstrate no evidence of fixed or reversible perfusion defects. There is increased transient ischemic dilatation ratio (TID 1.28), suggestive of possible multivessel disease or balanced ischemia. Gated imaging demonstrates normal global LV systolic function. LVEF is calculated at 62%. Conclusion: No evidence of fixed or reversible perfusion defects. Increased transient ischemic dilatation ratio (TID 1.28), suggestive of possible multivessel disease or balanced ischemia. Gated imaging demonstrates normal global LV systolic function. LVEF is calculated at 62%. Electronically signed by : Janis Rogers, 03/17/2023 00:21:57
== END ==
LOC: RAD 11:13
PROVIDERS: PCP Family Medicine; Visit Provider Nurse Practitioner
DX: R06.00 Dyspnea, unspecified (principal); I73.9 Peripheral vascular disease, unspecified; E11.40 Type 2 diabetes mellitus with diabetic neuropathy, unspecified; I20.8 Other forms of angina pectoris; E66.9 Obesity, unspecified; Z68.39 Body mass index [BMI] 39.0-39.9, adult
CPT/HCPCS: 78452; 93017; A9502; J2785

== ENCOUNTER → 2023-03-22 09:53 | Outpatient (CLI) | payer OTHER, SELFPAY ==
--- NOTE | 2023-03-22 10:32 | CA_ITS ---
APPROVED REPORT EXAM: Comprehensive 2D, Doppler, and color-flow Echocardiogram Diesel Mechanic Construction: Rosemarie Sanchez RVT Ht: 5 ft 4 in Wt: 232lbs BSA: 2.08 BP: 141/42 mmHg Indications: CP,HTN,DM,EDEMA,ABN AMIRA 2D Dimensions LVOT 2.15 cm (M/F) 1.5-2.5 LA Volume 39.10 mL LA Volume Index 18.71 mL/m2 (M/F) 16-34 M-Mode Dimensions RVDd 2.13 cm (0.9-2.6) LA Diam 3.58 cm (1.9-4.0) LVDd 4.11 cm (3.5-5.7) Ao Diam 3.31 cm (2.0-3.7) LVDs 2.62 cm (3.5-5.7) IVSd 0.80 cm (0.6-1.1) PWd 0.89 cm (0.6-1.1) EF (Teich) 66.40% FS 36.30% EDV (Teich) 74.70 mL TAPSE 2.17 (<1.7) ESV (Teich) 25.10 mL LV Diastology E Decel Time 293.00 (160-240 msec) E/A Ratio 0.6 MED E' 7.10 (< 7 cm/sec) E'/MED E' Ratio 8.96 (>14) LAT E' 10.00 (<10 cm/sec) E/LAT E' Ratio 6.36 (>14) Aortic Valve LVOT Max 122.00 (70-110 cm/s) LVOT VTI 28.26 cm AoV Peak Luis. 168.00 (50-130 cm/s) AO Peak GR. 11.30 mmHg AO Mean GR. 5.20 (<5 mmHg) AO VTI 28.60 (18-25 cm) BRIAN (VTI) 3.59 (2.5-4.5 cm2) Mitral Valve MV E Max Luis. 64.00 (40-130 cm/s) MV A Velocity 112.00 (40-130 cm/s) E/A Ratio 0.57 MV Decel. Time 293.00 (160-240 ms) MV PHT 86.00 ms Pulmonary Valve PV Peak Velocity 71.00 (50-150 cm/s) Left Ventricle The left ventricle is normal size. The left ventricular systolic function is normal. The left ventricular ejection fraction is within the normal range. There is normal left ventricular wall thickness. There is normal LV segmental wall motion. The left ventricular diastolic function is normal. LVEF is 60%. Right Ventricle The right ventricle is normal size. The right ventricular systolic function is normal. Atria The left atrium size is normal. There is no Doppler evidence of interatrial shunt. Aortic Valve The aortic valve opens well. There is no aortic valvular stenosis. No aortic regurgitation is present. Mitral Valve The mitral valve is normal in structure. No evidence of mitral valve stenosis. There is no mitral valve regurgitation noted. Tricuspid Valve The tricuspid valve leaflets are thin and pliable. Trace tricuspid regurgitation. There is insufficient TR jet to estimate RVSP. Pulmonic Valve The pulmonary valve is normal in structure. Trace pulmonic regurgitation. Great Vessels The aortic root is normal in size. Ascending aorta is normal in caliber. IVC is normal in size and collapses >50% with inspiration. Pericardium There is no pericardial effusion. Other Information Study Quality: Adequate Conclusion Normal biventricular systolic function. No significant valvular stenosis or regurgitation. Electronically signed by : Janis Rogers MD 03/24/2023 19:02:37
== END ==
PROVIDERS: PCP Family Medicine; Visit Provider Nurse Practitioner
DX: R06.00 Dyspnea, unspecified (principal); I20.8 Other forms of angina pectoris; I73.9 Peripheral vascular disease, unspecified; E11.40 Type 2 diabetes mellitus with diabetic neuropathy, unspecified; E66.9 Obesity, unspecified; Z68.38 Body mass index [BMI] 38.0-38.9, adult; Z79.4 Long term (current) use of insulin
CPT/HCPCS: 93306

== ENCOUNTER 2023-04-02 08:23 | Day surgery (SDC) | payer OTHER, SELFPAY ==
[2023-04-02] VITALS (11 sets, daily range): BP systolic 113–171; BP diastolic 57–91; PULSE 67–81; RESP 18; O2SAT 90–98; BMI 38.6
--- NOTE | 2023-04-02 07:09 | IR_ITS ---
APPROVED REPORT Patient Location: Outpatient Credentialing Specialist: ALEJANDRA Mujica RT (R) PROCEDURES Left heart catheterization Left ventriculogram Selective coronary angiogram Catheter placement in the right common iliac artery Right common iliac artery antegrade angiogram with unilateral runoff to the right foot Catheter placement in the left common iliac artery Left common iliac artery antegrade angiogram with unilateral runoff to the foot Catheter placed into the distal abdominal aorta Distal abdominal aortography INDICATION High risk abnormal Myoview, Angina pectoris, Maverick claudication class III, Abnormal AMIRA, Informed consent was obtained prior to the procedure. COMPLICATIONS NONE Estimated Blood Loss: LESS THAN 10 ML TECHNIQUE One percent lidocaine used to anesthetize the right anterior aspect of the wrist. The right radial artery was accessed via the Seldinger technique. A 6 Afghan sheath was placed in the right radial artery. 2.5 mg of Verapamil, 800 mcg of nitroglycerin, 1mg Lidocaine and 5000 U Heparin were given through the arterial sheath. The papa catheter was also used to perform left heart catheterization, left ventriculogram and selective coronary angiogram. At the end the diagnostic angiogram a PV multi curve was placed under fluoroscopic guidance into the right common iliac artery were right common iliac artery antegrade angiogram with unilateral runoff to the right foot was performed. The catheter was pulled back and placed to the left common iliac artery where the same procedure was repeated. Following this the catheter was pulled back to the distal abdominal aorta where distal abdominal aortography was performed. At the end the procedure the apparatus was removed the sheath was removed and hemostasis was achieved using TR banding patient was transferred to the postop putting in stable addition ANGIOGRAPHIC RESULTS The left main artery Has distal 20 to 30% stenosis The left anterior descending artery Is proximally normal and then has an 80 to 90% stenosis immediately after the moderate to large first diagonal artery. There is an additional 40% mid LAD stenosis with additional 30 and 40% distal stenoses. The large diagonal artery has mid vessel 40% stenoses The circumflex artery Is a nondominant vessel gives rise to a moderate to large ramus intermedius which has an ostial 50% stenosis and a mid vessel 80 to 90% stenosis. The circumflex artery itself is small with mid vessel 80 to 90% stenoses The right coronary artery Is a dominant vessel and has a proximal 40% stenosis with mid vessel and distal 40% stenoses. There is a focal 90% stenosis at a bifurcating area between the pes anterior lateral branch and posterior descending artery. The posterior descending artery has proximal and mid vessel 80 to 90% stenoses. The vessel was less than 1.5 mm in diameter. There is an additional marginal branch which has proximal and mid vessel 80 to 90% stenosis with this vessel being 1 mm in diameter. The posterior lateral branch is large and has a mid vessel 50 to 60% stenosis. The FERRERA ventriculogram reveals Normal 65% The left ventricular end-diastolic pressure 30 mmHg Distal abdominal aorta is patent Bilateral common iliac arteries patent Bilateral internal and external iliac arteries patent Bilateral common femoral arteries patent Bilateral profunda femoris arteries are patent Right superficial femoral artery has proximal 50% stenosis with additional 60 and 70% stenoses in Roberto Carlos's canal. The right popliteal artery has a 40% mid vessel stenosis. The right anterior tibialis artery is subtotally occluded proximally. The peroneal artery is also patent in the proximal segment but then occludes at mid vessel. The posterior tibialis artery is garcias
[2023-04-02 09:42] LABS: Anion Gap 9.3 mEq/L (5-15); Blood Urea Nitrogen 18 mg/dl (7-17); Calcium 9.8 mg/dl (8.4-10.2); Carbon Dioxide 30 mmol/L (22.0-30.0); Chloride 104 mmol/L (98-107); Creatinine Clearance Estimated 93 mL/min (50-200); Estimated Glomerular Filt Rate 63 ml/min (>60); GFR (African American) 77 ML/MIN (>60); Glucose 243 mg/dl (74-100); Potassium 4.3 mmoL/L (3.5-5.1); Sodium 139 mmol/L (136-145)
[2023-04-02 09:43] LABS: Basophils # 0.3 K/mm3 (0-0.2); Basophils % 1.3 % (0.1-2.0); Eosinophils # 0.3 K/mm3 (0.0-0.4); Eosinophils % 1.2 % (0.1-12.0); Hematocrit 43.1 % (37.0-47.0); Hemoglobin 14.2 g/dL (12.2-16.2); Lymphocytes # 12.2 K/mm3 (0.7-4.5); Lymphocytes % 50.2 % (10-50); Mean Corpuscular HGB Conc 32.9 g/dL (31.8-35.4); Mean Corpuscular Hemoglobin 28.5 pg (27.0-31.2); Mean Corpuscular Volume 86.8 fl (81-99); Monocytes # 0.7 K/mm3 (0.1-1.0); Monocytes % 2.9 % (1.7-9.3); Neutrophils # 10.8 K/mm3 (1.8-7.8); Neutrophils % 44.4 % (37.0-80.0); Platelet Count 247 K/mm3 (142-424); Red Blood Count 4.97 M/mm3 (4.20-5.40); Red Cell Distribution Width 13.4 % (11.5-17.5); White Blood Count 24.3 K/mm3 (4.8-10.8)
[2023-04-02 10:05] LABS: MANUAL DIFFERENTIAL MANUAL DIFFERENTIAL (MANUAL DIFF)
[2023-04-02 12:24] LABS: Lymphocytes % 50 % (10-50); Monocytes % 2 % (2-9); Neutrophils % 48 % (42-76); Platelet Estimate Normal; RBC Morphology Normal; Total Cells Counted 100
== END 2023-04-02 14:07 | disposition home or self-care (01) ==
PROVIDERS: PCP Family Medicine; Visit Provider Internal Medicine
DX: R94.39 Abnormal result of other cardiovascular function study (principal); E11.40 Type 2 diabetes mellitus with diabetic neuropathy, unspecified; R94.31 Abnormal electrocardiogram [ECG] [EKG]; E03.9 Hypothyroidism, unspecified; E66.9 Obesity, unspecified; I70.213 Atherosclerosis of native arteries of extremities with intermittent claudication, bilateral legs; Z79.4 Long term (current) use of insulin; Z68.38 Body mass index [BMI] 38.0-38.9, adult; Z79.899 Other long term (current) drug therapy; I25.118 Atherosclerotic heart disease of native coronary artery with other forms of angina pectoris
CPT/HCPCS: 36247; 75625; 80048; 85007; 85025; 93458; 99152; 99153; C1725; C1769; J1644; Q9966; Q9967

== ENCOUNTER 2023-07-01 09:44 | Outpatient (RCR) | payer OTHER, SELFPAY | END 2023-08-04 14:00 | disposition home or self-care (01) | LOC: PT 09:44 | PROVIDERS: Visit Provider Thoracic Surgery (Cardiothoracic Vascular Surgery) | DX: Z95.1 Presence of aortocoronary bypass graft (principal); I25.10 Atherosclerotic heart disease of native coronary artery without angina pectoris ==

== ENCOUNTER 2023-09-23 07:48 | Outpatient (CLI) | payer OTHER, SELFPAY ==
--- NOTE | 2023-09-23 07:51 | CA_ITS ---
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 2D Dimensions LA Volume 47.10 mL LA Volume Index 23.20 mL/m2 (M/F) 16-34 EF AP4 75.40 % GL Strain -18.6 % M-Mode Dimensions RVDd 3.12 cm (0.9-2.6) LA Diam 4.04 cm (1.9-4.0) LVDd 4.41 cm (3.5-5.7) LVDs 3.12 cm (3.5-5.7) IVSd 1.07 cm (0.6-1.1) PWd 1.11 cm (0.6-1.1) EF (Teich) 56.30% FS 29.30% EDV (Teich) 88.20 mL ESV (Teich) 38.50 mL LV Diastology E Decel Time 223 (160-240 msec) E/A Ratio 0.7 Mitral Valve MV E Max Luis. 57.0 (40-130 cm/s) MV A Velocity 82.0 (40-130 cm/s) E/A Ratio 0.69 MV PHT 65.0 ms Left Ventricle The left ventricle is normal size. The left ventricular systolic function is normal. The left ventricular ejection fraction is within the normal range. Proximal septal thickening is noted. There is normal LV segmental wall motion. The left ventricular diastolic function is normal. LVEF is 60%. Right Ventricle The right ventricle is normal size. The right ventricular systolic function is normal. Atria The left atrium size is normal. The right atrium size is normal. There is no Doppler evidence of interatrial shunt. Aortic Valve Aortic valve is mildly thickened. There is no aortic valvular stenosis. Trace aortic regurgitation. Mitral Valve The mitral valve is mildly thickened. No evidence of mitral valve stenosis. Trace mitral regurgitation. Tricuspid Valve The tricuspid valve leaflets are thin and pliable. Trace tricuspid regurgitation. There is insufficient TR jet to estimate RVSP. Pulmonic Valve The pulmonary valve is normal in structure. Trace pulmonic regurgitation. Great Vessels The aortic root is normal in size. The ascending aorta is normal in size. IVC is normal in size and collapses >50% with inspiration. Pericardium There is no pericardial effusion. An epicardial fat pad is noted. Other Information Study Quality: Fair Conclusion Normal biventricular systolic function. No significant valvular stenosis or regurgitation. Electronically signed by : Janis Rogers MD 09/26/2023 23:21:33
== END 2023-09-23 23:59 ==
LOC: RT 07:49
PROVIDERS: PCP Family Medicine; Visit Provider Nurse Practitioner
DX: I25.10 Atherosclerotic heart disease of native coronary artery without angina pectoris (principal); Z95.1 Presence of aortocoronary bypass graft
CPT/HCPCS: 93306

== ENCOUNTER 2023-10-05 14:45 | Outpatient (CLI) | payer OTHER, SELFPAY ==
--- NOTE | 2023-10-05 14:57 | XR_ITS ---
FINAL REPORT CLINICAL HISTORY: FALL COMPARISON: None FINDINGS: AP, lateral, and swimmer's views of the thoracic spine were obtained. There is no prior exam for comparison. There is mild wedging of the T7 vertebral body, favor chronic over acute. There are severe diffuse degenerative changes in the thoracic spine with multilevel fusion, likely DISH. Paraspinal soft tissues are within normal limits. IMPRESSION: Mild wedging of the T7 vertebral body, favor chronic over acute. Severe diffuse degenerative changes with multilevel fusion, likely DISH. Reviewed, Interpreted and Dictated by Tonio Jacob III, MD Transcribed by Edel Jean Baptiste Authenticated and . [facility]
--- NOTE | 2023-10-05 15:04 | XR_ITS ---
FINAL REPORT CLINICAL HISTORY: FALL COMPARISON: None FINDINGS: RIGHT RIBS: No prior films are available for comparison purposes. There is irregularity of the anterior right sixth rib, and possibly of the seventh rib as well, consistent with fractures of indeterminate age. There is mild bilateral atelectasis versus scar present. No pneumothorax is seen. IMPRESSION: Irregularity of the anterior right sixth rib, possibly of the seventh rib as well, consistent with fractures of indeterminate age. Mild bilateral atelectasis versus scar. Reviewed, Interpreted and Dictated by Tonio Jacob III, MD Transcribed by Edel Jean Baptiste Authenticated and [facility]
== END 2023-10-05 23:59 | disposition home or self-care (01) ==
LOC: RAD 14:46
PROVIDERS: PCP Family Medicine; Visit Provider Family Medicine
DX: R07.82 Intercostal pain (principal); M54.6 Pain in thoracic spine; W10.8XXA Fall (on) (from) other stairs and steps, initial encounter
CPT/HCPCS: 71101; 72072

== ENCOUNTER 2024-01-18 07:22 | Day surgery (SDC) | payer OTHER, SELFPAY ==
[2024-01-14 14:16] VITALS: BMI 33.7
[2024-01-18] MEDS: PHENYLEPHRINE 2.5% OPHTH SOLN 2ML OP ×3 (08:55→09:05)
[2024-01-18] MEDS: CYCLOPENTOLATE 2% OPHTH SOLN 2ML BOTTLE OP ×3 (08:55→09:05)
[2024-01-18] MEDS: TETRACAINE 0.5% OPTH SOL 15ML OP ×3 (08:55→09:05)
[2024-01-18 08:57] VITALS: BP 158/65; PULSE 97; RESP 18; TEMP 36.1; O2SAT 97
[2024-01-18 09:02] LABS: POC Glucose,Bedside 98 (70-110)
[2024-01-18] MEDS: LACTATED RINGERS 1000ML 1,000 ML 25 ML IV (09:07)
[2024-01-18 09:55] VITALS: BP 140/64; PULSE 75; RESP 16; TEMP 36.7; O2SAT 99
[2024-01-18] MEDS: TOBRAMYCIN/DEX OPTH SUSP 2.5ML OP (09:55)
[2024-01-18] MEDS: MIDAZOLAM 2MG/2ML VIAL 1 MG IV (09:55)
[2024-01-18] MEDS: LIDOCAINE 1% PF 2ML AMPULE 2 ML IJ (09:56)
[2024-01-18] MEDS: TIMOLOL 0.5% OPTH SOLN 5ML OP (09:56)
[2024-01-18 10:00] VITALS: BP 147/67; PULSE 75; RESP 16; TEMP 36.7; O2SAT 96
[2024-01-18 10:04] VITALS: BP 143/65; PULSE 75; RESP 16; TEMP 36.7; O2SAT 98
[2024-01-18 10:12] VITALS: BP 142/76; PULSE 79; RESP 18; TEMP 36.2; O2SAT 99
--- NOTE | 2024-01-18 12:06 | P.PCN_ITS ---
[facility] Procedure Note Date: 01/18/24 Time: 12:06 Procedure Note:: Preoperative Diagnosis: Cataract combined NS Cortical Complex [Right] Eye Postop diagnosis: same Operation: Microscopic phacoemulsification with intraocular lens implant [Right] Eye Specimen: None Blood Loss: None The patient was examined in the office with a complaint of poor vision in the [right] eye. The patient reports that this interferes with ADLs such as reading, watching TV and/or driving or the vision is like looking through a foggy haze and is very troubling. The patient was examined and found to have a visually significant cataract with best corrected vision of [20/400] by refraction and/or glare testing. Treatment options, risks and benefits were explained and the patient elected to have cataract surgery in an attempt to improve their vision. The patient had the eye anesthetized with topical tetracaine, the eye ways prepped and draped in the usual fashion for cataract surgery. A paracentesis and a temporal keratotomy were made. 0.2cc of 1% lidocaine PF was placed into the anterior chamber. And aqueous/viscoelastic exchange was done and a 360 degree capsulorexis was performed. Through hydrodissection and delineation with BSS on a cannula was done. The lens nucleus was phecoemulsified with CDE of [5.9]. Residual cortical material was removed using automated I&A The capsular bag was deepened with viscoelastica and a PCIOL was placed in the capsular bag with good centration and stability. Residual viscoelastic was removed using automated I&A. The keratotomy incision was hydrated with BSS on a cannula. The wound were checked and found to be water tight. IOP was checked digitally and adjusted as needed so as not to be too high. 1 drop of timolol 0.5%, ofloxacin, prednisolone acetate and ketorolac was instilled and eye shield taped over the eye. The patient was taken to recovery in good condition and will be seen postoperatively. 0
== END 2024-01-18 10:20 | disposition home or self-care (01) ==
PROVIDERS: PCP Family Medicine; Visit Provider Ophthalmology
PROC: (CPT 66984; principal; 2024-01-18 10:00)
DX: H25.11 Age-related nuclear cataract, right eye (principal)
CPT/HCPCS: 66984; 82962; J2250; J7120; V2632

== ENCOUNTER 2024-02-07 16:30 | Outpatient (CLI) | payer OTHER, SELFPAY ==
--- NOTE | 2024-02-07 16:34 | XR_ITS ---
PROCEDURE INFORMATION: Exam: XR Left Shoulder Exam date and time: 02/07/2024 4:36 PM Age: 63 years old Clinical indication: Pain; Shoulder; Left; Additional info: Left shoulder pain TECHNIQUE: Imaging protocol: Radiologic exam of the left shoulder. Views: 2 or more views. COMPARISON: No relevant prior studies available. FINDINGS: Bones/joints: Normal. Soft tissues: Normal. IMPRESSION: No acute findings.
== END 2024-02-07 23:59 | disposition home or self-care (01) ==
LOC: RAD 16:31
PROVIDERS: PCP Family Medicine; Visit Provider Nurse Practitioner
DX: M25.512 Pain in left shoulder (principal)
CPT/HCPCS: 73030

== ENCOUNTER 2024-02-08 07:40 | Day surgery (SDC) | payer OTHER, SELFPAY ==
[2024-02-07 14:22] VITALS: BMI 34.1
[2024-02-08] MEDS: PHENYLEPHRINE 2.5% OPHTH SOLN 2ML OP ×3 (08:56→09:12)
[2024-02-08] MEDS: TETRACAINE 0.5% OPTH SOL 15ML OP ×3 (08:56→09:11)
[2024-02-08] MEDS: CYCLOPENTOLATE 2% OPHTH SOLN 2ML BOTTLE OP ×3 (08:56→09:12)
[2024-02-08 09:03] VITALS: BP 140/61; PULSE 71; RESP 18; TEMP 36.2; O2SAT 99
[2024-02-08 09:34] VITALS: BP 192/79; PULSE 71; RESP 16; TEMP 36.7; O2SAT 100
[2024-02-08] MEDS: TIMOLOL 0.5% OPTH SOLN 5ML OP (09:34)
[2024-02-08] MEDS: MIDAZOLAM 2MG/2ML VIAL 1 MG IV (09:34)
[2024-02-08] MEDS: TOBRAMYCIN/DEX OPTH SUSP 2.5ML OP (09:34)
[2024-02-08] MEDS: LIDOCAINE 1% PF 2ML AMPULE 2 ML IJ (09:34)
[2024-02-08 09:39] VITALS: BP 157/72; PULSE 66; RESP 16; TEMP 36.7; O2SAT 100
[2024-02-08 09:44] VITALS: BP 164/77; PULSE 66; RESP 16; TEMP 36.7; O2SAT 100
[2024-02-08 09:48] VITALS: BP 123/60; PULSE 79; RESP 17; TEMP 36.4; O2SAT 97
--- NOTE | 2024-02-08 11:03 | P.PCN_ITS ---
[facility] Procedure Note Date: 02/08/24 Time: 11:03 Procedure Note:: Preoperative Diagnosis: Cataract combined NS Cortical Complex [Left] Eye Postop diagnosis: same Operation: Microscopic phacoemulsification with intraocular lens implant [Left] Eye Specimen: None Blood Loss: None The patient was examined in the office with a complaint of poor vision in the [left] eye. The patient reports that this interferes with ADLs such as reading, watching TV and/or driving or the vision is like looking through a foggy haze and is very troubling. The patient was examined and found to have a visually significant cataract with best corrected vision of [<20/50] by refraction and/or glare testing. Treatment options, risks and benefits were explained and the patient elected to have cataract surgery in an attempt to improve their vision. The patient had the eye anesthetized with topical tetracaine, the eye ways prepped and draped in the usual fashion for cataract surgery. A paracentesis and a temporal keratotomy were made. 0.2cc of 1% lidocaine PF was placed into the anterior chamber. And aqueous/viscoelastic exchange was done and a 360 degree capsulorexis was performed. Through hydrodissection and delineation with BSS on a cannula was done. The lens nucleus was phecoemulsified with CDE of [5.61]. Residual cortical material was removed using automated I&A The capsular bag was deepened with viscoelastica and a PCIOL was placed in the capsular bag with good centration and stability. Residual viscoelastic was removed using automated I&A. The keratotomy incision was hydrated with BSS on a cannula. The wound were checked and found to be water tight. IOP was checked digitally and adjusted as needed so as not to be too high. 1 drop of timolol 0.5%, ofloxacin, prednisolone acetate and ketorolac was instilled and eye shield taped over the eye. The patient was taken to recovery in good condition and will be seen postoperatively.
== END 2024-02-08 09:58 | disposition home or self-care (01) ==
PROVIDERS: PCP Family Medicine; Visit Provider Ophthalmology
PROC: (CPT 66984; principal; 2024-02-08 10:00)
DX: H25.12 Age-related nuclear cataract, left eye (principal)
CPT/HCPCS: 66984; J2250; V2632

== ENCOUNTER 2024-02-15 19:46 | Emergency (ER) | payer OTHER, SELFPAY ==
[2024-02-15 19:48] VITALS: BP 170/69; PULSE 82; RESP 18; TEMP 36.7; O2SAT 96; BMI 33.3
--- NOTE | 2024-02-15 19:49 | ED_ITS ---
<Statement entered by Juana Roger DO - 02/15/24 21:59> I was consulted by the TAMRA, and we discussed the complexity of the problems being addressed. I approved the treatment and management plan for this patient's care in the emergency department, thus performing a substantive portion of the medical decision making. Juana Roger DO Discharge Plan Disposition Patient Disposition: Home, Self-Care Chief Complaint: Extremity Injury, Upper Prescriptions Prescriptions: No Action latanoprost [Xalatan] 0.005 % drops 1 drp Eye-Both DAILY Patient Comments: INSTILL 1 DROP INTO EACH EYE AT BEDTIME Mounjaro 5 mg/0.5 mL pen injector 5 mg SQ WEEKLY Patient Comments: INJECT SYRINGE SUBCUTANEOUSLY DIRECTED Xarelto 2.5 mg tablet 2.5 mg PO ONCE ranolazine 500 mg tablet extended release 12 hr 500 mg PO BID Qty: 60 5RF levothyroxine [Synthroid] 200 mcg tablet 200 mcg PO DAILY insulin glargine 100 unit/mL (3 mL) insulin pen 15 unit SQ DAILY PRN (Reason: Hyperglycemia) Patient Comments: takes 30 units in AM and if glucose is high will take 15 units in PM ergocalciferol (vitamin D2) 1,250 mcg (50,000 unit) capsule 1,250 mcg PO WEEKLY Patient Comments: TAKE 1 CAPSULE BY MOUTH TWICE A WEEK Rx Instructions: 2x week gabapentin [Neurontin] 600 mg tablet 600 mg PO DAILY Patient Comments: TAKE 1 TABLET BY MOUTH THREE TIMES DAILY FOR PAIN aspirin 81 mg tablet,delayed release (DR/EC) See Rx Instructions .ROUTE .COMPLEX Qty: 30 3RF Dose Instruction: Take 1 tablet by mouth once daily Rx Instructions: Take 1 tablet by mouth once daily Referrals Follow up/Referrals: Huan Sales MD [Primary Care Provider] - See instructions Suleiman Esposito DO [Staff Physician] - See instructions (Right, dominant hand, radius fracture) Activity Restrictions/Add. Instructions Additional Instructions/Restrictions: Please keep ice on your fracture is much as possible. Please keep elevated. In the morning please call the orthopedics office for an appointment. Tell them that you were seen in the emergency department. Return to the ER for any w orsening signs or symptoms as needed. Clinical Impressions Clinical Impression: Distal radius fracture, right Qualifiers: Encounter type: initial encounter Fracture type: closed Instructions Patient Instructions: DI for Distal Radius Fracture Print Language Print Language: Slovak Discharge ED Provider: Juana Roger General Adult HPI General Chief complaint: Extremity Injury, Upper Stated complaint: AO 02-15-24 fell and hurt right wrist Time Seen by Provider: 02/15/24 19:49 History of Present Illness HPI narrative: Patient tripped and fell with an injury to her right, which is her dominant, hand/wrist. She denies loss of consciousness or pain anywhere else. Related Data Home Medications ?Medication ?Instructions ?Recorded ?Confirmed levothyroxine 200 mcg tablet 200 mcg PO DAILY 02/22/23 02/07/24 (Synthroid) ergocalciferol (vitamin D2) 1,250 1,250 mcg PO WEEKLY 03/25/23 02/07/24 mcg (50,000 unit) capsule gabapentin 600 mg tablet 600 mg PO DAILY 03/25/23 02/08/24 (Neurontin) latanoprost 0.005 % eye drops 1 drp Eye-Both DAILY 07/19/23 02/08/24 (Xalatan) tirzepatide 5 mg/0.5 mL 5 mg SQ WEEKLY 10/18/23 02/08/24 subcutaneous pen injector (Mounjaro) insulin glargine 100 unit/mL (3 15 unit SQ DAILY PRN Hyperglycemia 02/07/24 02/07/24 mL) subcutaneous pen rivaroxaban 2.5 mg tablet (Xarelto) 2.5 mg PO ONCE 02/07/24 02/07/24 Previous Rx's ?Medication ?Instructions ?Recorded ranolazine 500 mg tablet,extended 500 mg PO BID #60 tabs 02/07/24 release,12 hr aspirin 81 mg tablet,delayed See Rx Instructions .Route 02/14/24 release .COMPLEX #30 tabs Allergies Allergy/AdvReac Type Severity Reaction Status Date / Time No Known Allergies Allergy Verified 02/08/24 08:55 [facility] Disclaimer: The information contained in this section may have been updated after the patient was seen, as this information can be updated by other users. Medical History (Updated 02/15/24 @ 21:30 by REYMUNDO Jean) Leukemia Diabetes mellitus, type 2 Hypothyroid Atypical angina Dyspnea Claudication Surgical History History of weight loss surgery History of open heart surgery Family History Other Family history of cancer Family history of hypertension Social History Smoking Status: Never smoker alcohol intake: never current occupational status: retired Travel in the last 8 weeks: None caffeine: No ROS Obtained: Yes Systems reviewed as appropriate & no additional complaints except as documented Physical Exam General General appearance: alert and in no apparent distress Respiratory Respiratory exam: Present normal lung sounds bilaterally Cardiovascular Cardiovascular exam: Present regular rate and normal rhythm Neurological Exam Neurological exam: Present alert and oriented X3 Medical Decision Making Medical Records Medical records reviewed: Yes I reviewed the patient's medical records. John Inquiry Pt receiving controlled substance: No Vital Signs: 02/15/24 19:48 Temperature 98.1 F Temperature Source Oral Pulse Rate [Right] 82 Respiratory Rate 18 Blood Pressure [Left Arm] 170/69 H Blood Pressure Mean [Left Arm] 102 Blood Pressure Source [Left Arm] Automatic Cuff Blood Pressure Position [Left Arm] Sitting 02 Sat by Pulse Oximetry 96 Oxygen Delivery Method Room Air Orders (Tests/Meds): ED MEDICATIONS Discontinued Medications Generic Name Dose Route Start Last Admin Trade Name Freq PRN Reason Stop Dose Admin Oxycodone HCl 5 mg 02/15/24 21:17 Oxycodone 5mg Immediate Release Tablet PO 02/15/24 21:18 ONCE ONE ORDERS Category Date Time Status Forearm XR right 2 views [XR forearm RT 2V] Stat Exams 02/15/24 19:58 Completed Hand XR right minimum 3 views [XR hand RT min 3V] Stat Exams 02/15/24 19:58 Completed Wrist XR right minimum 3 views [XR wrist RT min 3V] Exams 02/15/24 19:58 Completed Stat Medical Decision Narrative: In summary patient is a 63-year-old female who presents to the emergency de partment for evaluation of right upper extremity injury. Patient is hemodynamically stable upon arrival, afebrile. Physical exam is remarkable for a visible deformity at the right wrist with some ecchymosis noted on the radial side. Patient neurovascularly intact distally however she has painful range of motion but is able to do opposition. She has positive radius and ulnar pulses.. Differential diagnosis includes fracture versus sprain versus dislocation etc. Initial workup will be conducted with plain film x-rays. Initial interventions include Toradol Tylenol oxycodone. Initial workup reviewed by me and my informal interpretation shows a radius fracture that actually has intra- articular extension. Given this we have splinted the fracture and referred her to orthopedics with strict return precautions. Critical Care Critical Care Time Critical Care Time: No
--- NOTE | 2024-02-15 19:58 | XR_ITS ---
PROCEDURE INFORMATION: Exam: XR Right Forearm Exam date and time: 02/15/2024 8:19 PM Age: 63 years old Clinical indication: Injury or trauma; Fall; Blunt trauma (contusions or hematomas); Arm, lower; Right; Additional info: Fall injury TECHNIQUE: Imaging protocol: Radiologic exam of the right forearm. Views: 2 views. COMPARISON: CR XR WRIST RT MIN 3V 02/15/2024 8:17 PM FINDINGS: Bones/joints: Distal radius fracture redemonstrated. No other fracture seen. Soft tissues: Normal. IMPRESSION: Distal radius fracture.
--- NOTE | 2024-02-15 19:58 | XR_ITS ---
PROCEDURE INFORMATION: Exam: XR Right Hand Exam date and time: 02/15/2024 8:15 PM Age: 63 years old Clinical indication: Injury or trauma; Fall; Blunt trauma (contusions or hematomas); Hand; Right; Additional info: Fall injury TECHNIQUE: Imaging protocol: Radiologic exam of the right hand. Views: 3 or more views. COMPARISON: No relevant prior studies available. FINDINGS: Bones/joints: Comminuted impacted nondisplaced fracture of the distal radial metaphysis with intra-articular extension. No other fracture seen. Degenerative changes of the hand and wrist. Osteopenia. Soft tissues: Normal. IMPRESSION: Distal radius fracture.
--- NOTE | 2024-02-15 19:58 | XR_ITS ---
PROCEDURE INFORMATION: Exam: XR Right Wrist Exam date and time: 02/15/2024 8:17 PM Age: 63 years old Clinical indication: Injury or trauma; Fall; Blunt trauma (contusions or hematomas); Wrist; Right; Additional info: Fall injury TECHNIQUE: Imaging protocol: Radiologic exam of the right wrist. Views: 3 or more views. COMPARISON: CR XR HAND RT MIN 3V 02/15/2024 8:15 PM FINDINGS: Bones/joints: Comminuted impacted distal radius fracture with intra-articular extension. No evident displacement. No other fracture seen. Degenerative changes. Soft tissues: Normal. IMPRESSION: Distal radius fracture.
[2024-02-15] MEDS: OXYCODONE 5MG IMMEDIATE RELEASE TABLET 5 MG PO (21:39)
[2024-02-15] MEDS: IBUPROFEN 400 MG TABLET 800 MG PO (21:39)
[2024-02-15] MEDS: ACETAMINOPHEN 500MG TAB 1000 MG PO (21:39)
[2024-02-15 21:47] VITALS: BP 140/69; PULSE 71; RESP 16; TEMP 36.6; O2SAT 97
== END 2024-02-15 21:48 | disposition home or self-care (01) ==
PROVIDERS: Emergency Provider Emergency Medicine; PCP Family Medicine
DX: S52.501A Unspecified fracture of the lower end of right radius, initial encounter for closed fracture (principal); M25.531 Pain in right wrist; W01.10XA Fall on same level from slipping, tripping and stumbling with subsequent striking against unspecified object, initial encounter
CPT/HCPCS: 73090; 73110; 73130; 99283

== ENCOUNTER 2024-02-29 09:31 | Outpatient (CLI) | payer OTHER, SELFPAY ==
--- NOTE | 2024-02-29 09:36 | XR_ITS ---
FINAL REPORT CLINICAL HISTORY: right wrist pain fracture 2 weeks ago COMPARISON: None FINDINGS: RIGHT WRIST Three views demonstrate cast obscuring some of the detail. There is a fracture of the distal radial metaphysis with impaction of the fracture fragments. There is probable callus formation at the fracture site. Mild degenerative changes are noted. There are vascular calcifications. IMPRESSION: Radial fracture with probable callus formation. Reviewed, Interpreted and Dictated by Tonio Jacob III, MD Transcribed by Tahmina Fontenot Authenticated and [facility]
== END 2024-02-29 23:59 | disposition home or self-care (01) ==
LOC: RAD 09:33
PROVIDERS: PCP Family Medicine; Visit Provider Orthopaedic Surgery
DX: S62.101A Fracture of unspecified carpal bone, right wrist, initial encounter for closed fracture (principal)
CPT/HCPCS: 73110

== ENCOUNTER 2024-03-14 10:12 | Outpatient (CLI) | payer OTHER, SELFPAY ==
--- NOTE | 2024-03-14 10:16 | XR_ITS ---
FINAL REPORT CLINICAL HISTORY: right wrist pain. cast off COMPARISON: 02/29/2024 FINDINGS: RIGHT WRIST In the interval since the prior exam of February 28, the cast has been removed. There is a healing transverse fracture, minimally impacted, of the distal radial metaphysis with mild dorsal angulation. The visualized joint spaces are normally aligned. The soft tissues are unremarkable. IMPRESSION: Healing transverse fracture of the distal radius as described. Cast has been removed since the prior exam. Reviewed, Interpreted and Dictated by Donal Cintron MD Transcribed by Edel Jean Baptiste Authenticated and [facility]
== END 2024-03-14 23:59 | disposition home or self-care (01) ==
LOC: RAD 10:13
PROVIDERS: PCP Family Medicine; Visit Provider Physician Assistant Surgical
DX: M25.531 Pain in right wrist (principal)
CPT/HCPCS: 73110

== ENCOUNTER 2024-04-04 08:00 | Outpatient (CLI) | payer OTHER, SELFPAY ==
--- NOTE | 2024-04-04 08:03 | XR_ITS ---
FINAL REPORT TECHNIQUE: 3 views. CLINICAL HISTORY: Right wrist fracture, follow-up. COMPARISON: February 29, 2024. FINDINGS: There has been interval removal of the cast. There is a subacute fracture of the distal radius with evidence of interval healing. There are mild degenerative changes. Vascular calcifications are identified. IMPRESSION: Subacute fracture of the distal radius with evidence of interval healing. Reviewed, Interpreted and Dictated by Tonio Jacob III, MD Transcribed by Eloisa Justin PA-C Authenticated and [facility]
== END 2024-04-04 23:59 | disposition home or self-care (01) ==
LOC: RAD 08:01
PROVIDERS: PCP Family Medicine; Visit Provider Physician Assistant Surgical
DX: M25.531 Pain in right wrist (principal); S62.101A Fracture of unspecified carpal bone, right wrist, initial encounter for closed fracture
CPT/HCPCS: 73110

== ENCOUNTER 2024-09-17 09:41 | Outpatient (CLI) | payer MEDICARE, SELFPAY ==
[2024-09-17 22:26] LABS: Coronavirus 19, PCR Not Detected (NotDetected); Influenza A, PCR Detected (NotDetected); Influenza B, PCR Not Detected (NotDetected)
== END 2024-09-17 23:59 | disposition home or self-care (01) ==
LOC: LAB.DROPOF 09-18 13:03
PROVIDERS: PCP Student in an Organized Health Care Education/Training Program; Visit Provider Student in an Organized Health Care Education/Training Program
DX: R05.9 Cough, unspecified (principal); J09.X2 Influenza due to identified novel influenza A virus with other respiratory manifestations
CPT/HCPCS: 87636

== ENCOUNTER 2024-09-27 10:16 | Outpatient (CLI) | payer MEDICARE, SELFPAY ==
[2024-09-27 10:26] LABS: Microscopic, Urine URINE MICROSCOPIC (MICROSCOPIC)
[2024-09-27 10:47] LABS: Hematocrit 39.2 % (37.0-47.0); Hemoglobin 12.6 g/dL (12.2-16.2); Mean Corpuscular HGB Conc 32.1 g/dL (31.8-35.4); Mean Corpuscular Volume 90.3 fl (81-99); Platelet Count 238 K/mm3 (142-424); Red Blood Count 4.34 M/mm3 (4.20-5.40); Red Cell Distribution Width 12.6 % (11.5-17.5)
[2024-09-27 10:51] LABS: Appearance,Urine CLEAR (Clear); Bilirubin,Urine Negative (Negative); Blood, Urine Negative (Negative); Color,Urine YELLOW (Yellow); Glucose,Urine (UA) Negative (Negative); Ketones,Urine Negative (Negative); Leukocyte Esterase,Urine 1+ (Negative); Nitrate,Urine POSITIVE (Negative); Protein,Urine Negative (Negative); Urobilinogen,Urine 0.2 EU/dl (0.2)
[2024-09-27 11:00] LABS: MANUAL DIFFERENTIAL MANUAL DIFFERENTIAL (MANUAL DIFF)
[2024-09-27 11:03] LABS: Creatinine,Urine Random 72 mg/dL (Not Estab.)
[2024-09-27 11:27] LABS: Albumin Level 3.9 g/dl (3.5-5.0); Chloride 110 mmol/L (98-107); Potassium 4.7 mmoL/L (3.5-5.1); Sodium 144 mmol/L (136-145)
[2024-09-27 11:30] LABS: Anion Gap 11.7 mEq/L (5-15); Blood Urea Nitrogen 24 mg/dl (7-17); Carbon Dioxide 27 mmol/L (22.0-30.0); Estimated Glomerular Filt Rate 45 ml/min (>60); GFR (African American) 55 ML/MIN (>60)
[2024-09-27 11:31] LABS: Bacteria,Urine 3+ /lpf; Calcium 9.2 mg/dl (8.4-10.2); Glucose 97 mg/dl (74-100); Phosphorous 3.2 mg/dl (2.5-4.5); WBC,Urine 50-100 #/hpf (0-3)
[2024-09-27 11:52] LABS: 25-OH Vitamin D, Total 74.3 ng/mL (30-100)
[2024-09-27 12:30] LABS: Eosinophils % 1 % (0-3); Lymphocytes % 65 % (10-50); Monocytes % 3 % (2-9); Neutrophils % 31 % (42-76); Total Cells Counted 100
[2024-09-27 12:31] LABS: Platelet Estimate Normal; RBC Morphology Normal
[2024-09-27 13:01] LABS: Intact Parathyroid Hormone 44.3 pg/mL (7.5-53.5)
== END 2024-09-27 23:59 | disposition home or self-care (01) ==
LOC: LAB 10:18
PROVIDERS: PCP Family Medicine; Visit Provider Nurse Practitioner
DX: N17.9 Acute kidney failure, unspecified (principal); N39.0 Urinary tract infection, site not specified; E55.9 Vitamin D deficiency, unspecified
CPT/HCPCS: 36415; 80069; 81001; 82306; 82570; 83970; 84156; 85007; 85027; 87086; 87088; 87186